=== PATIENT | female | born 1985 | race Caucasian/White ===

== ENCOUNTER 2016-10-06 18:12 | Emergency (ER) | payer MEDICAID ==
[2016-10-06 18:21] VITALS: BP 125/89
[2016-10-06] MEDS ORDERED: Sodium Chloride 0.9% 1,000 ML IV ONE (18:48)
[2016-10-06] MEDS ORDERED: Metoclopramide 10 MG/2 ML SDV IVPUSH ONE (18:48)
[2016-10-06] MEDS ORDERED: Sodium Chloride 0.9% 10 ML Syringe FLUSH PRN (18:48)
[2016-10-06] MEDS ORDERED: diphenhydrAMINE 50 MG/ML SDV IVPUSH ONE (18:48)
--- NOTE | 2016-10-06 18:55 | EDM.PDOC ---
ED HPI GENERAL MEDICAL PROBLEM - General Chief Complaint: Headache Stated Complaint: HEADACHE/VISION CHANGES Time Seen by Provider: 10/06/16 18:35 Source of Information: Reports: Patient History Limitations: Reports: No Limitations - History of Present Illness INITIAL COMMENTS - FREE TEXT/NARRATIVE: 31-year-old female presents for evaluation and treatment of a headache. Patient reports that the headache came on suddenly while she was at work around 1700 this evening. She states that is located behind the left eye. She has tried Motrin but this has not helped. She is currently complaining of headache and vision changes. She reports that her left eye is blurry and describes her vision as turning lenz. She has felt nauseous earlier but this has since resolved. No fevers, neck pain, vomiting or back pain. Patient reports that she used to get headaches frequently as a child. She used to be on mag salts has not been on them in several years and has not had trouble with migraines in several years. She denies any trauma or any known trigger that caused a migraine headache today. Patient reports she has 20/20 vision. No glasses or contracts. 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 Denies: Ear Pain, Sinus Problem GI/Abdominal: Reports: Nausea (earlier now resolved). Denies: Vomiting Neurological: Reports: Headache. Denies: Dizziness, Numbness, Seizure, Syncope , Tingling - Physical Exam Exam: See Below Exam Limited By: No Limitations General Appearance: Alert, WD/WN, No Apparent Distress Eye Exam: Left Eye: Vision Changes (left eye 20/100; right eye 20/20; both 20/20 ), Bilateral Eye: EOMI, Normal Fundi (difficulty to fully examine the retina; cannot exclude optic neuroitis), Normal Inspection, PERRL Ears: Normal External Exam, Normal Canal, Hearing Grossly Normal, Normal TMs Nose: Normal Inspection Throat/Mouth: Normal Inspection, Normal Lips, Normal Teeth, Normal Oropharynx, No Airway Compromise Head Exam: Atraumatic, Normocephalic. No: Sinus Tenderness Neck: Normal Inspection, Supple, Non-Tender, Full Range of Motion. No: Lymphadenopathy (L), Lymphadenopathy (R) Respiratory/Chest: No Respiratory Distress, Lungs Clear, Normal Breath Sounds Cardiovascular: Normal Peripheral Pulses, Regular Rate, Rhythm, No Murmur Neuro Exam (Abbreviated): Alert, Oriented, CN II-XII Intact, Normal Cognition, Normal Gait Psychiatric: Normal Affect, Normal Mood Skin Exam: Warm, Dry, Normal Color Course - Vital Signs Last Recorded V/S: Last Vital Signs Temp 36.7 C 10/06/16 18:20 Pulse 68 10/06/16 18:20 Resp 20 10/06/16 18:20 BP 125/89 10/06/16 18:20 Pulse Ox 99 10/06/16 18:20 - Orders/Labs/Meds Orders: Active Orders 24 hr Category Date Time Status Peripheral IV Care [RC] . DIRECTED Care 10/06/16 18:49 Inactive Labs: Laboratory Tests 10/06/16 10/06/16 10/06/16 Range/Units 19:30 19:30 19:30 WBC 11.27 H (3.98-10.04) K/mm3 RBC 4.76 (3.98-5.22) M/mm3 Hgb 13.4 (11.2-15.7) gm/L Hct 39.2 (34.1-44.9) % MCV 82.4 (79.4-94.8) fl MCH 28.2 (25.6-32.2) pg MCHC 34.2 (32.2-35.5) g/dl RDW Std Deviation 38.8 (36.4-46.3) fL Plt Count 274 (182-369) K/mm3 MPV 10.2 (9.4-12.3) fl Neut % (Auto) 68.3 (34.0-71.1) % Lymph % (Auto) 24.9 (19.3-51.7) % [place] % (Auto) 5.7 (4.7-12.5) % Eos % (Auto) 0.5 L (0.7-5.8) Baso % (Auto) 0.4 (0.1-1.2) % Neut # (Auto) 7.70 H (1.56-6.13) K/mm3 Lymph # (Auto) 2.81 (1.18-3.74) K/mm3 [place] # (Auto) 0.64 H (0.24-0.36) K/mm3 Eos # (Auto) 0.06 (0.04-0.36) K/mm3 Baso # (Auto) 0.04 (0.01-0.08) K/mm3 Sodium 139 (136-145) mEq/L Potassium 3.5 (3.5-5.1) mEq/L Chloride 102 (98-107) mEq/L Carbon Dioxide 29 (21-32) mEq/L Anion Gap 11.5 (5-15) BUN 8 (7-18) mg/dL Creatinine 0.7 (0.55-1.02) mg/dL Est Cr Clr Drug Dosing 111.01 mL/min Estimated GFR (MDRD) > 60 (>60) mL/min BUN/Creatinine Ratio 11.4 L (14-18) Glucose 91 (74-106) mg/dL Calcium 8.9 (8.5-10.1) mg/dL Total Bilirubin 0.3 (0.2-1.0) mg/dL AST 18 (15-37) U/L ALT 30 (14-59) U/L Alkaline Phosphatase 85 (46-116) U/L C-Reactive Protein < 0.2 (<1.0) mg/dL Total Protein 7.5 (6.4-8.2) g/dl Albumin 3.7 (3.4-5.0) g/dl Globulin 3.8 gm/dL Albumin/Globulin Ratio 1.0 (1-2) Meds: Medications Discontinued Medications Generic Name Dose Route Start Last Admin Trade Name Nolan PRN Reason Stop Dose Admin Dexamethasone 4 mg 10/06/16 21:20 Dexamethasone IM 10/06/16 21:21 ONETIME ONE Dexamethasone 4 mg 10/06/16 21:24 10/06/16 21:29 Dexamethasone IM 10/06/16 21:25 4 mg ONETIME ONE Administration Diphenhydramine HCl 50 mg 10/06/16 18:48 10/06/16 19:21 Benadryl IVPUSH 10/06/16 18:49 Not Given ONETIME ONE Diphenhydramine HCl 50 mg 10/06/16 19:45 10/06/16 20:11 Benadryl PO 10/06/16 19:46 50 mg ONETIME ONE Administration Haloperidol Lactate 5 mg 10/06/16 20:50 10/06/16 21:15 Haldol IM 10/06/16 20:51 Not Given ONETIME ONE Sodium Chloride 1,000 mls @ 999 mls/hr 10/06/16 18:48 10/06/16 19:20 Normal Saline IV 10/06/16 19:48 Not Given ONETIME ONE Ketorolac Tromethamine 60 mg 10/06/16 19:45 10/06/16 20:11 Toradol IM 10/06/16 19:46 60 mg ONETIME ONE Administration Metoclopramide HCl 5 mg 10/06/16 18:48 10/06/16 19:21 Reglan IVPUSH 10/06/16 18:49 Not Given ONETIME ONE Sodium Chloride 10 ml 10/06/16 18:48 Saline Flush FLUSH ASDIRECTED PRN Keep Vein Open - Radiology Interpretation Free Text/Narrative:: CT of the head without contrast impression per Dr. Trinidad: 1. No acute intracranial abnormality is identified on noncontrast head CT study. - Re-Assessments/Exams Free Text/Narrative Re-Assessment/Exam: 10/06/16 20:13 unsuccessful in obtaining IV access. Gave toradol IM once head CT was negative for bleed. 10/06/16 20:45 Labs returned WBC Cis 11.27, hgb is 13.4 and plts are 274 CRP is <0.2 sodium is 139, potassium is 3.5 and chloride is 102. creatinine is 0.7. Glucose is 91 Headache now a 7/10. No change in vision. Will order IM haldol. 10/06/16 21:25 Patient does not have a ride home and must drive her self home. Decided to cancel haldol. Will give IM dexamethasone 4mg. 10/06/16 22:08 Patient reports headache is now a 3 out of 10. Feels comfortable going home. Will discharge home. I discussed with the patient this is most likely an atypical migraine. However, I do have concerns that this is optic neuroitis. I will start her on a prednison viral in case this is the cause. I would like her to follow-up with optometry next week and family med. I was unsuccessful in identifying optic neuroitis on fundoscopic exam. Departure - Departure Time of Disposition: 22:01 Disposition: Home, Self-Care 01 Condition: Good Clinical Impression: Headache, Blurry vision, left eye - Discharge Information Prescriptions: Prednisone [IJD: predniSONE] See Taper PO WITHBREAKFAST #11 tab Instructions: General Headache Without Cause Referrals: PCP,None [Primary Care Provider] - Forms: ED Department Discharge Additional Instructions: take prednisone as prescribed. 2 tabs (40mg) PO days 1-3, 1 tab (20mg) PO days 4 -6, 1/2 tab (10mg) PO days 7-10 Follow-up with an eye doctor next week. Please let them know you developed a headache and blurry vision. You were seen in the ER and we had concerns for optic neuroitis. Follow-up with your PCP next week for a recheck on your symptoms and further testing as needed. Go home and rest in a dark, quiet room. Take OTC tylenol or motrin as needed for additional relief. Please return to the ER should your symptoms change or worsen. - My Orders Last 24 Hours: My Active Orders 10/06/16 18:49 Peripheral IV Care [RC] . DIRECTED - Assessment/Plan Last 24 Hours: My Active Orders 10/06/16 18:49 Peripheral IV Care [RC] . DIRECTED
--- NOTE | 2016-10-06 19:32 | CT ---
Head CT Technique: Multiple axial sections of the brain were obtained. Intravenous contrast was not utilized. Comparison: No previous intracranial imaging is available. Findings: Ventricles along with basal cisterns and sulci over the convexities are within normal limits for the patient's age. No abnormal parenchymal densities are seen. No evidence of intracranial hemorrhage. No midline shift or mass effect is seen. Bone window settings were reviewed which shows no discrete calvarial abnormality. Visualized sinuses are clear. Impression: 1. No acute intracranial abnormality is identified on noncontrast head CT study. Diagnostic code #1
[2016-10-06] MEDS ORDERED: diphenhydrAMINE 50 MG Cap PO ONE (19:45)
[2016-10-06] MEDS ORDERED: Ketorolac 60 MG/2 ML SDV IM ONE (19:45)
[2016-10-06] MEDS ORDERED: Haloperidol Lactate 5 MG/ML SDV IM ONE (20:50)
[2016-10-06] MEDS ORDERED: Dexamethasone 4 MG/ML 5 ML MDV IM ONE (21:20)
[2016-10-06] MEDS ORDERED: Dexamethasone 10 MG/ML SDV IM ONE (21:24)
== END 2016-10-06 22:15 | disposition home or self-care (01) ==
LOC: JD.ED 18:12
DX: R51 Headache (principal); H53.8 Other visual disturbances; Z90.49 Acquired absence of other specified parts of digestive tract
CPT/HCPCS: 36415; 70450; 80053; 85025; 86140; 99284; A9270; J1100; J1885; 96372; 99283

== ENCOUNTER 2017-08-28 19:18 | Emergency (ER) | payer MEDICAID ==
[2017-08-28 19:28] VITALS: BP 127/79
[2017-08-28] MEDS ORDERED: Lactated Ringers 1,000 ML IV ONE (20:06)
[2017-08-28] MEDS ORDERED: Ondansetron 4 MG/2 ML SDV IVPUSH ONE (20:07)
[2017-08-28] MEDS ORDERED: HYDROmorphone 0.5 MG/0.5 ML SYRINGE IVPUSH ONE ×2 (20:07→21:36)
[2017-08-28] MEDS: Sodium Chloride 0.9% 10 ML Syringe FLUSH PRN ×2 (20:18→21:50)
[2017-08-28] MEDS ORDERED: Diatrizoate Meglumine/Diatrizoate Sodium 37% 120 ML Bottle PO ONE (21:27)
[2017-08-28] MEDS ORDERED: Iopamidol 612 MG/ML 150 ML Bottle IVPUSH ONE (21:27)
--- NOTE | 2017-08-28 21:31 | EDM.PDOC ---
ED HPI GENERAL MEDICAL PROBLEM - General Chief Complaint: Abdominal Pain Stated Complaint: STOMACH PAIN Time Seen by Provider: 08/28/17 20:00 Source of Information: Reports: Patient History Limitations: Reports: No Limitations - History of Present Illness INITIAL COMMENTS - FREE TEXT/NARRATIVE: 32-year-old female presents for evaluation and treatment of lower abdominal pain. Patient reports that the abdominal pain started suddenly tonight while she was at work. She reports it is starts in the suprapubic region and radiates to the bilateral lower abdomen. She describes the pain as a sharp stabbing sensation. Rates the pain as a 7 or 8 out of 10. She reports that she's not felt well today. She reports she is not have an appetite. She's not had anything to eat since breakfast today. She states that movement seems to worsen the abdominal pain. She denies any fevers, chills, nausea, vomiting, diarrhea or constipation. No urinary symptoms including no dysuria, hematuria change in urine odor. Patient reports her last menstrual period was about 4 weeks ago. She has had her tubes tied in the past. No other abdominal surgeries. 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 Denies: Bloody Stool, Constipation, Diarrhea, Hematochezia, Melena, Nausea, Vomiting : Denies: Dysuria, Flank Pain, Hematuria ED EXAM, GI/ABD - Physical Exam Exam: See Below Exam Limited By: No Limitations General Appearance: Alert, WD/WN, No Apparent Distress Respiratory/Chest: No Respiratory Distress, Lungs Clear, Normal Breath Sounds Cardiovascular: Normal Peripheral Pulses, Regular Rate, Rhythm, No Murmur GI/Abdominal Exam: Normal Bowel Sounds, Soft, Rebound, Tender (suprapubic and bilateral lower abdomen right > left), Other (pain at mcburnies point; minor discomfort with psosas and obturator signs, no pain with heel percussion). No: Rigid Neurological: Alert, Oriented, Normal Cognition Psychiatric: Normal Affect, Normal Mood Skin Exam: Warm, Dry, Normal Color Course - Vital Signs Last Recorded V/S: Last Vital Signs Temp 36.8 C 08/28/17 19:22 Pulse 88 08/28/17 19:22 Resp 18 08/28/17 19:22 BP 127/79 08/28/17 19:22 Pulse Ox 98 08/28/17 19:22 - Orders/Labs/Meds Orders: Active Orders 24 hr Category Date Time Status Peripheral IV Care [RC] . DIRECTED Care 08/28/17 20:07 Active Abdomen Pelvis w Cont [CT] Stat Exams 08/28/17 20:07 Taken UA W/MICROSCOPIC [URIN] Stat Lab 08/28/17 20:27 Ordered Sodium Chloride 0.9% [Saline Flush] Med 08/28/17 20:07 Active 10 ml FLUSH ASDIRECTED PRN Peripheral IV Insertion Adult [OM.PC] Routine Oth 08/28/17 20:06 Ordered Medication Orders Sodium Chloride (Saline Flush) 10 ml FLUSH ASDIRECTED PRN PRN Reason: Keep Vein Open Last Admin: 08/28/17 21:50 Dose: 10 ml Admin: 08/28/17 20:18 Dose: 10 ml Labs: Laboratory Tests 08/28/17 08/28/17 08/28/17 Range/Units 20:25 20:25 20:25 WBC 10.76 H (3.98-10.04) K/mm3 RBC 4.82 (3.98-5.22) M/mm3 Hgb 13.4 (11.2-15.7) gm/L Hct 39.9 (34.1-44.9) % MCV 82.8 (79.4-94.8) fl MCH 27.8 (25.6-32.2) pg MCHC 33.6 (32.2-35.5) g/dl RDW Std Deviation 39.0 (36.4-46.3) fL Plt Count 218 (182-369) K/mm3 MPV 10.3 (9.4-12.3) fl Neutrophils % (Manual) 70 H (40-60) % Band Neutrophils % 0 (0-10) % Lymphocytes % (Manual) 29 (20-40) % Atypical Lymphs % 0 % Monocytes % (Manual) 1 L (2-10) % Eosinophils % (Manual) 0 L (0.7-5.8) % Basophils % (Manual) 0 L (0.1-1.2) Platelet Estimate Adequate Plt Morphology Comment Normal RBC Morph Comment Normal Sodium 139 (136-145) mEq/L Potassium 4.0 (3.5-5.1) mEq/L Chloride 104 (98-107) mEq/L Carbon Dioxide 26 (21-32) mEq/L Anion Gap 13.0 (5-15) BUN 11 (7-18) mg/dL Creatinine 0.7 (0.55-1.02) mg/dL Est Cr Clr Drug Dosing 110.01 mL/min Estimated GFR (MDRD) > 60 (>60) mL/min BUN/Creatinine Ratio 15.7 (14-18) Glucose 93 (74-106) mg/dL Calcium 9.1 (8.5-10.1) mg/dL Total Bilirubin 0.3 (0.2-1.0) mg/dL AST 14 L (15-37) U/L ALT 20 (14-59) U/L Alkaline Phosphatase 74 (46-116) U/L C-Reactive Protein < 0.2 (<1.0) mg/dL Total Protein 7.0 (6.4-8.2) g/dl Albumin 3.5 (3.4-5.0) g/dl Globulin 3.5 gm/dL Albumin/Globulin Ratio 1.0 (1-2) HCG, Qual Negative (NEGATIVE) Urine Color (Yellow) Urine Appearance (Clear) Urine pH (5.0-8.0) Ur Specific [place] (1.005-1.030) Urine Protein (Negative) Urine Glucose (UA) (Negative) Urine Ketones (Negative) Urine Occult Blood (Negative) Urine Nitrite (Negative) Urine Bilirubin (Negative) Urine Urobilinogen (0.2-1.0) Ur Leukocyte Esterase (Negative) Urine RBC (0-5) /hpf Urine WBC (0-5) /hpf Ur Epithelial Cells (0-5) /hpf Urine Bacteria (FEW) /hpf Urine Mucus (FEW) /hpf 08/28/17 Range/Units 20:27 WBC (3.98-10.04) K/mm3 RBC (3.98-5.22) M/mm3 Hgb (11.2-15.7) gm/L Hct (34.1-44.9) % MCV (79.4-94.8) fl MCH (25.6-32.2) pg MCHC (32.2-35.5) g/dl RDW Std Deviation (36.4-46.3) fL Plt Count (182-369) K/mm3 MPV (9.4-12.3) fl Neutrophils % (Manual) (40-60) % Band Neutrophils % (0-10) % Lymphocytes % (Manual) (20-40) % Atypical Lymphs % % Monocytes % (Manual) (2-10) % Eosinophils % (Manual) (0.7-5.8) % Basophils % (Manual) (0.1-1.2) Platelet Estimate Plt Morphology Comment RBC Morph Comment Sodium (136-145) mEq/L Potassium (3.5-5.1) mEq/L Chloride (98-107) mEq/L Carbon Dioxide (21-32) mEq/L Anion Gap (5-15) BUN (7-18) mg/dL Creatinine (0.55-1.02) mg/dL Est Cr Clr Drug Dosing mL/min Estimated GFR (MDRD) (>60) mL/min BUN/Creatinine Ratio (14-18) Glucose (74-106) mg/dL Calcium (8.5-10.1) mg/dL Total Bilirubin (0.2-1.0) mg/dL AST (15-37) U/L ALT (14-59) U/L Alkaline Phosphatase (46-116) U/L C-Reactive Protein (<1.0) mg/dL Total Protein (6.4-8.2) g/dl Albumin (3.4-5.0) g/dl Globulin gm/dL Albumin/Globulin Ratio (1-2) HCG, Qual (NEGATIVE) Urine Color Yellow (Yellow) Urine Appearance Clear (Clear) Urine pH 7.0 (5.0-8.0) Ur Specific [place] 1.025 (1.005-1.030) Urine Protein Negative (Negative) Urine Glucose (UA) Negative (Negative) Urine Ketones Negative (Negative) Urine Occult Blood Negative (Negative) Urine Nitrite Negative (Negative) Urine Bilirubin Negative (Negative) Urine Urobilinogen 0.2 (0.2-1.0) Ur Leukocyte Esterase 1+ H (Negative) Urine RBC Not seen (0-5) /hpf Urine WBC 5-10 H (0-5) /hpf Ur Epithelial Cells 20-30 H (0-5) /hpf Urine Bacteria Not seen (FEW) /hpf Urine Mucus Not seen (FEW) /hpf Meds: Medications Generic Name Dose Route Start Last Admin Trade Name Freeduarda PRN Reason Stop Dose Admin Sodium Chloride 10 ml 08/28/17 20:07 08/28/17 21:50 Saline Flush FLUSH 10 ml ASDIRECTED PRN Administration Keep Vein Open Discontinued Medications Generic Name Dose Route Start Last Admin Trade Name Freq PRN Reason Stop Dose Admin Diatrizoate Meglum/Diatrizoate Sod 90 ml 08/28/17 21:27 08/28/17 21:50 Gastrografin 37% PO 08/28/17 21:28 90 ml ONETIME ONE Administration Hydromorphone HCl 0.5 mg 08/28/17 20:07 08/28/17 20:19 Dilaudid IVPUSH 08/28/17 20:08 0.5 mg ONETIME ONE Administration Hydromorphone HCl 0.5 mg 08/28/17 21:36 08/28/17 21:55 Dilaudid IVPUSH 08/28/17 21:37 0.5 mg ONETIME ONE Administration Lactated Ringer's 1,000 mls @ 999 mls/hr 08/28/17 20:06 08/28/17 20:19 Ringers, Lactated IV 08/28/17 21:06 999 mls/hr .BOLUS ONE Administration Iopamidol 125 ml 08/28/17 21:27 08/28/17 21:50 Isovue-300 (61%) IVPUSH 08/28/17 21:28 125 ml ONETIME ONE Administration Ondansetron HCl 4 mg 08/28/17 20:07 08/28/17 20:18 Zofran IVPUSH 08/28/17 20:08 4 mg ONETIME ONE Administration - Radiology Interpretation Free Text/Narrative:: CT of the abdomen and pelvis with IV and oral contrast impression per vrad: Small amount of free fluid in the cul-de-sac. Corpus luteum cyst in the left ovary. The bowel wall is thickened in the cecum. This could be secondary to colitis. This could be infectious or inflammatory. Normal appendix. Moderate distention of the urinary bladder. - Re-Assessments/Exams Free Text/Narrative Re-Assessment/Exam: 08/28/17 22:04 Pain returning, additional 0.5 mg IV Dilaudid ordered. Awaiting CT report at this time. 08/28/17 22:[address] Johnson. Recommended symptomatic care with pain meds, clear fluids and probiotic. Close follow-up. I reviewed the labs and CT report with the patient. We will discharge the patient home at this time. Discharge instructions as documented. Departure - Departure Time of Disposition: 22:54 Disposition: Home, Self-Care 01 Condition: Fair Clinical Impression: Colitis, Corpus luteum cyst of left ovary - Discharge Information Prescriptions: Acetaminophen/oxyCODONE [Percocet 325-5 MG] 1 tab PO Q4HR PRN #15 tab PRN Reason: Pain Referrals: Connie Beltrán PA-C [Primary Care Provider] - Forms: ED Department Discharge Additional Instructions: [id number] Tylenol or Motrin as needed for pain relief. For pain not relieved by Tylenol or Motrin may take Percocet 1-2 tabs every 4-6 hours as needed for severe pain. Percocet is habit-forming, take as few of thes as needed to control your pain. Do not drive or operate machinery within 12 hours of taking Percocet. do not take more than 4 g of Tylenol from all sources in 1 day. Do not take more than 3200 mg of ibuprofen frp, all sources in 1 day. Make sure you start a stool softener such as miralax if you take the narcotics. drink clear fluids and a bland diet. He may start with a bland diet tomorrow evening. [place] diet recommendations inc bread, rice, applesauce, crackers, yogurt, bananas, Soup broth, etc.may advance advance to more diet as tolerated. Recommend purchasing a probiotic and taking this daily. These are available over -the-counter. you were given medication in the ER that can affect your ability to drive and operate machinery. Do not drive or operate machinery within 12 hours of taking prescription narcotic pain medications. Follow-up with her primary care provider later this week, or Sunday for recheck of your symptoms. If you do not improve you may require additional workup to determine the cause of the colitis. Please return to the ER for symptoms change or worsen. - My Orders Last 24 Hours: My Active Orders 08/28/17 20:06 Peripheral IV Insertion Adult [OM.PC] Routine 08/28/17 20:07 Peripheral IV Care [RC] . DIRECTED Abdomen Pelvis w Cont [CT] Stat Sodium Chloride 0.9% [Saline Flush] 10 ml FLUSH ASDIRECTED PRN 08/28/17 20:27 UA W/MICROSCOPIC [URIN] Stat - Assessment/Plan Last 24 Hours: My Active Orders 08/28/17 20:06 Peripheral IV Insertion Adult [OM.PC] Routine 08/28/17 20:07 Peripheral IV Care [RC] . DIRECTED Abdomen Pelvis w Cont [CT] Stat Sodium Chloride 0.9% [Saline Flush] 10 ml FLUSH ASDIRECTED PRN 08/28/17 20:27 UA W/MICROSCOPIC [URIN] Stat
--- NOTE | 2017-08-29 08:26 | CT ---
CT abdomen and pelvis Technique: Multiple axial sections were obtained from above the dome of the diaphragm inferiorly through the pubic symphysis. Intravenous and oral contrast was given. Delayed images were also obtained through the bladder. Visualized lung bases show nothing acute. Liver shows no focal parenchymal abnormality. Spleen appears within normal limits. Adrenal glands show no nodule. Gallbladder is collapsed containing no calcified gallstones. Kidneys show symmetric contrast enhancement without hydronephrosis or mass. Pancreas appears within normal limits. Aorta shows no aneurysmal dilatation. Appendix is seen which is normal in size. No pelvic mass or adenopathy is seen. Questionable thickening of the wall within the cecum is seen. Mild increased stool is noted within the colon. No free fluid or inflammatory change is seen. Delayed images show contrast within the distal ureters and within the bladder. No bowel dilatation is seen. Bone window settings were reviewed which appear within normal limits for the patient's age. Incidental note of small fat-containing umbilical hernia. Impression: 1. Equivocal wall thickening within the cecum. This may be artifact but difficult to exclude minimal colitis. Please correlate with the patient's symptoms. 2. Mild increased stool within the colon. 3. Other portions of the CT exam of the abdomen and pelvis appears within normal limits. Nothing acute is seen. Diagnostic code #3 Agree with preliminary report issued by [facility] ([facility] preliminary report dictated on 87, 11:35 PM Central Time)
== END 2017-08-28 23:10 | disposition home or self-care (01) ==
LOC: JD.ED 19:18
DX: K52.9 Noninfective gastroenteritis and colitis, unspecified (principal); N83.12 Corpus luteum cyst of left ovary; Z88.6 Allergy status to analgesic agent; Z88.0 Allergy status to penicillin; Z88.1 Allergy status to other antibiotic agents; Z79.899 Other long term (current) drug therapy
CPT/HCPCS: 36415; 74177; 80053; 81001; 84703; 85007; 85027; 86140; 96361; 96374; 96375; 96376; 99284; J1170; J2405; J7050; J7120; Q9963; Q9967

== ENCOUNTER 2017-09-13 17:59 | Emergency (ER) | payer MEDICAID ==
[2017-09-13 18:20] VITALS: BP 121/79
--- NOTE | 2017-09-13 18:56 | EDM.PDOC ---
ED HPI GENERAL MEDICAL PROBLEM - General Chief Complaint: Abdominal Pain Stated Complaint: ABDOMINAL PAIN Time Seen by Provider: 09/13/17 18:56 Source of Information: Reports: Patient History Limitations: Reports: No Limitations - History of Present Illness INITIAL COMMENTS - FREE TEXT/NARRATIVE: Patient is a 32-year-old female presents ED complaining of sharp lower abdominal pain. Patient states it radiates bilaterally into her low back. States when she went to the bathroom today to urinate she had some blood from her rectum. She states their was only a small amount of blood with few blood clots present. She has a history of hemorrhoids but states there is no pain to her rectum. States her stool caliber has changed as well. There is no burning sensation with urination. No abnormal vaginal discharge. She is slightly nauseated with no documented fever or emesis. She denies being since she has had a tubal ligation. She was evaluated 08/28/2017 for the similar complaints. She was diagnosed with colitis and was instructed to take pain medications and a probiotic. She has not followed up with primary care provider as instructed. She denies any fevers, chills, and vomiting, diarrhea, constipation, dysuria, hematuria, and/or any additional complaints. 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 ED EXAM, GI/ABD - Physical Exam Exam: See Below Exam Limited By: No Limitations General Appearance: Alert, WD/WN, No Apparent Distress Ears: Hearing Grossly Normal Nose: Normal Inspection Throat/Mouth: Normal Voice, No Airway Compromise Neck: Normal Inspection, Supple Respiratory/Chest: No Respiratory Distress, Lungs Clear, Normal Breath Sounds, No Accessory Muscle Use Cardiovascular: Normal Peripheral Pulses, Regular Rate, Rhythm, No Murmur GI/Abdominal Exam: Normal Bowel Sounds, Soft, No Organomegaly, No Distention, Tender (mild tenderness to the suprapubic region), Other (negative mcburneys point. ) Back Exam: Normal Inspection. No: CVA Tenderness (L), CVA Tenderness (R) Extremities: Normal Inspection Neurological: Alert, Oriented, CN II-XII Intact, Normal Cognition, No Motor/ Sensory Deficits Psychiatric: Normal Affect, Normal Mood Skin Exam: Warm, Dry, Intact, Normal Color Course - Vital Signs Last Recorded V/S: Last Vital Signs Temp 97.4 F 09/13/17 18:17 Pulse 78 09/13/17 18:17 Resp 16 09/13/17 18:17 BP 121/79 09/13/17 18:17 Pulse Ox 97 09/13/17 18:17 - Orders/Labs/Meds Orders: Active Orders 24 hr Category Date Time Status Abdomen 2V AP Flat Upright [CR] Stat Exams 09/13/17 19:05 Taken CULTURE STOOL + SHIGATOX [RM] Stat Lab 09/13/17 19:14 Ordered WBC, STOOL [OP] Stat Lab 09/13/17 19:14 Ordered Labs: Laboratory Tests 09/13/17 09/13/17 09/13/17 Range/Units 19:58 19:58 21:00 WBC 9.58 (3.98-10.04) K/mm3 RBC 4.62 (3.98-5.22) M/mm3 Hgb 12.9 (11.2-15.7) gm/L Hct 38.5 (34.1-44.9) % MCV 83.3 (79.4-94.8) fl MCH 27.9 (25.6-32.2) pg MCHC 33.5 (32.2-35.5) g/dl RDW Std Deviation 39.1 (36.4-46.3) fL Plt Count 242 (182-369) K/mm3 MPV 10.6 (9.4-12.3) fl Neutrophils % (Manual) 70 H (40-60) % Band Neutrophils % 0 (0-10) % Lymphocytes % (Manual) 27 (20-40) % Atypical Lymphs % 0 % Monocytes % (Manual) 3 (2-10) % Eosinophils % (Manual) 0 L (0.7-5.8) % Basophils % (Manual) 0 L (0.1-1.2) Platelet Estimate Adequate RBC Morph Comment Normal Sodium 143 (136-145) mEq/L Potassium 4.0 (3.5-5.1) mEq/L Chloride 107 (98-107) mEq/L Carbon Dioxide 26 (21-32) mEq/L Anion Gap 14.0 (5-15) BUN 9 (7-18) mg/dL Creatinine 0.6 (0.55-1.02) mg/dL Est Cr Clr Drug Dosing 128.35 mL/min Estimated GFR (MDRD) > 60 (>60) mL/min BUN/Creatinine Ratio 15.0 (14-18) Glucose 95 (74-106) mg/dL Calcium 8.9 (8.5-10.1) mg/dL Total Bilirubin 0.3 (0.2-1.0) mg/dL AST 16 (15-37) U/L ALT 27 (14-59) U/L Alkaline Phosphatase 74 (46-116) U/L Total Protein 6.9 (6.4-8.2) g/dl Albumin 3.5 (3.4-5.0) g/dl Globulin 3.4 gm/dL Albumin/Globulin Ratio 1.0 (1-2) Lipase 110 (73-393) U/L Urine Color (Yellow) Urine Appearance (Clear) Urine pH (5.0-8.0) Ur Specific [place] (1.005-1.030) Urine Protein (Negative) Urine Glucose (UA) (Negative) Urine Ketones (Negative) Urine Occult Blood (Negative) Urine Nitrite (Negative) Urine Bilirubin (Negative) Urine Urobilinogen (0.2-1.0) Ur Leukocyte Esterase (Negative) Urine RBC (0-5) /hpf Urine WBC (0-5) /hpf Ur Epithelial Cells (0-5) /hpf Urine Bacteria (FEW) /hpf Urine Mucus (FEW) /hpf Urine HCG, Qual Negative (NEGATIVE) 09/13/17 Range/Units 21:00 WBC (3.98-10.04) K/mm3 RBC (3.98-5.22) M/mm3 Hgb (11.2-15.7) gm/L Hct (34.1-44.9) % MCV (79.4-94.8) fl MCH (25.6-32.2) pg MCHC (32.2-35.5) g/dl RDW Std Deviation (36.4-46.3) fL Plt Count (182-369) K/mm3 MPV (9.4-12.3) fl Neutrophils % (Manual) (40-60) % Band Neutrophils % (0-10) % Lymphocytes % (Manual) (20-40) % Atypical Lymphs % % Monocytes % (Manual) (2-10) % Eosinophils % (Manual) (0.7-5.8) % Basophils % (Manual) (0.1-1.2) Platelet Estimate RBC Morph Comment Sodium (136-145) mEq/L Potassium (3.5-5.1) mEq/L Chloride (98-107) mEq/L Carbon Dioxide (21-32) mEq/L Anion Gap (5-15) BUN (7-18) mg/dL Creatinine (0.55-1.02) mg/dL Est Cr Clr Drug Dosing mL/min Estimated GFR (MDRD) (>60) mL/min BUN/Creatinine Ratio (14-18) Glucose (74-106) mg/dL Calcium (8.5-10.1) mg/dL Total Bilirubin (0.2-1.0) mg/dL AST (15-37) U/L ALT (14-59) U/L Alkaline Phosphatase (46-116) U/L Total Protein (6.4-8.2) g/dl Albumin (3.4-5.0) g/dl Globulin gm/dL Albumin/Globulin Ratio (1-2) Lipase (73-393) U/L Urine Color Yellow (Yellow) Urine Appearance Clear (Clear) Urine pH 7.0 (5.0-8.0) Ur Specific [place] > or = 1.030 (1.005-1.030) Urine Protein Negative (Negative) Urine Glucose (UA) Negative (Negative) Urine Ketones Negative (Negative) Urine Occult Blood Negative (Negative) Urine Nitrite Negative (Negative) Urine Bilirubin Negative (Negative) Urine Urobilinogen 0.2 (0.2-1.0) Ur Leukocyte Esterase Negative (Negative) Urine RBC 0-5 (0-5) /hpf Urine WBC 0-5 (0-5) /hpf Ur Epithelial Cells 0-5 (0-5) /hpf Urine Bacteria Few (FEW) /hpf Urine Mucus Moderate H (FEW) /hpf Urine HCG, Qual (NEGATIVE) Meds: Medications Discontinued Medications Generic Name Dose Route Start Last Admin Trade Name Luisq PRN Reason Stop Dose Admin Hydromorphone HCl 0.5 mg 09/13/17 19:04 09/13/17 19:42 Dilaudid IVPUSH 09/13/17 19:05 0.5 mg ONETIME ONE Administration Sodium Chloride 1,000 mls @ 150 mls/hr 09/13/17 19:15 09/13/17 19:42 Normal Saline IV 150 mls/hr ASDIRECTED GRANT Administration Ondansetron HCl 4 mg 09/13/17 19:04 09/13/17 19:42 Zofran IVPUSH 09/13/17 19:05 4 mg ONETIME ONE Administration - Re-Assessments/Exams Free Text/Narrative Re-Assessment/Exam: IV established with NS, Zofran 4 mg IVP, and Dilaudid 0.5 mg IVP. Initial labs and studies will include: CBC, chem 14, lipase, UA, stool WBCs, stool cultures, hCG, and coag studies and abdomen 2 view flat and upright. 1919 Patient was evaluated 08/28/2017. Labs obtained reveal a slight increase my blood cell count with no neutrophilia or left shift. Chemistry panel is essentially normal. CRP less than 0.2. HCG negative. UA positive for leukocyte Estrace, negative nitrates, urine wbc's 5-10, urine epithelial cells 20-30. CT of the abdomen and pelvis with IV and oral contrast impression: Small amount of free fluid in the cul-de-sac. Corpus luteum cyst in the left ovary. The bowel wall is thickened and the cecum. This could be secondary to colitis. This could be infectious or inflammatory. Normal appendix. Moderate distention of the urinary bladder. Patient was discharged home with pain meds, clear fluids, and probiotic. With instructions for close follow-up. Two-view of the abdomen: Nonspecific air in stool patterns with no concerning findings. Final interpretations pending. Labs reviewed: CBC and chemistry panel essentially normal. UA negative for infection. Pain and nausea been controlled with the above therapies. At this point do not believe reimaging with CT is appropriate. Patient does not appear to be in acute distress. Labs are essentially normal. She has had no BM and or complained of any blood with admission. She defers examination for hemmorhoids. Patient agrees to not obtain CT of the abdomen. Will return if symptoms worsen. She has an appt with PCP scheduled for this coming Sunday. Outpatient orders for stool studies provided. Discharge instructions as documented. Departure - Departure Time of Disposition: 21:35 Disposition: Home, Self-Care 01 Condition: Good Clinical Impression: Clotted blood in stool Abdominal pain Qualifiers: Abdominal location: lower abdomen, unspecified Qualified Code(s): R10.30 - Lower abdominal pain, unspecified - Discharge Information Instructions: Rectal Bleeding, Lower Gastrointestinal Bleeding Referrals: Connie Beltrán PA-C [Primary Care Provider] - Forms: ED Department Discharge, ED Return to Work/School Form Additional Instructions: Please provide a stool sample for testing when able. Bring the stool sample to the lab as instructed by nursing staff. Stick with a clear liquid diet for the next 48 hrs advancing to a bland diet thereafter. Once stool studies have been completed you will be notified for treatment. Keep appt with PCP as scheduled for this coming Sunday. Return to the E.D. for any new or worsening symptoms. No driving this evening since receiving a sedative medication while in the E.D. Continue taking OTC probiotic. Utilize ibuprofen and tylenol in alternating fashion for pain. - My Orders Last 24 Hours: My Active Orders 09/13/17 19:05 Abdomen 2V AP Flat Upright [CR] Stat 09/13/17 19:14 CULTURE STOOL + SHIGATOX [RM] Stat WBC, STOOL [OP] Stat - Assessment/Plan Last 24 Hours: My Active Orders 09/13/17 19:05 Abdomen 2V AP Flat Upright [CR] Stat 09/13/17 19:14 CULTURE STOOL + SHIGATOX [RM] Stat WBC, STOOL [OP] Stat
[2017-09-13] MEDS ORDERED: HYDROmorphone 0.5 MG/0.5 ML SYRINGE IVPUSH ONE (19:04)
[2017-09-13] MEDS ORDERED: Ondansetron 4 MG/2 ML SDV IVPUSH ONE (19:04)
[2017-09-13] MEDS ORDERED: Sodium Chloride 0.9% 1,000 ML IV SCH (19:15)
--- NOTE | 2017-09-14 07:15 | CR ---
Abdomen: Supine and upright views of the abdomen were obtained. Comparison: No prior abdominal x-ray, previous CT abdomen and pelvis exam of 08/28/17. Bowel gas pattern appears normal. No free air is identified. No soft tissue abnormality or abnormal calcifications are seen. Impression: 1. Unremarkable two-view abdominal x-ray. Diagnostic code #1
== END 2017-09-13 21:50 | disposition home or self-care (01) ==
LOC: JD.ED 17:59
DX: K92.1 Melena (principal); R10.30 Lower abdominal pain, unspecified; Z88.6 Allergy status to analgesic agent; Z88.0 Allergy status to penicillin; Z88.1 Allergy status to other antibiotic agents
CPT/HCPCS: 36415; 74019; 80053; 81001; 81025; 83690; 85007; 85027; 96361; 96374; 96375; 99284; J1170; J2405; J7040

== ENCOUNTER 2017-11-25 20:42 | Emergency (ER) | payer MEDICAID ==
[2017-11-25] MEDS ORDERED: Ondansetron 4 MG/2 ML SDV IVPUSH ONE (21:35)
[2017-11-25] MEDS ORDERED: Sodium Chloride 0.9% 10 ML Syringe FLUSH PRN (21:36)
[2017-11-25] MEDS ORDERED: HYDROmorphone 0.5 MG/0.5 ML SYRINGE IVPUSH ONE (21:36)
--- NOTE | 2017-11-25 21:43 | EDM.PDOC ---
ED HPI GENERAL MEDICAL PROBLEM - General Chief Complaint: Abdominal Pain Stated Complaint: abdominal pain Time Seen by Provider: 11/25/17 21:53 Source of Information: Reports: Patient History Limitations: Reports: No Limitations - History of Present Illness INITIAL COMMENTS - FREE TEXT/NARRATIVE: 32-year-old female presents for evaluation and treatment of right upper quadrant and epigastric pain. Patient reports the pain started about 2-3 hours prior to arrival in the ER. Currently rates the pain as a 7 out of 10. States that it radiates into her back, shoulder and underneath her right shoulder blade. She reports associated symptoms of feeling dizzy, hot, nauseated and states she vomited 3 times. She has not appreciated any fevers. She states that she has tried reclining and using heating pad but has not had any relief. Patient reports when she was 24 she was told she had issues with her gallbladder. She was diagnosed with what sounds be biliary colic. She's not had any symptoms since. Patient has been seen in the ER several times this summer for abdominal pain. In July she was diagnosed with colitis. It sounds as if this is improving. She had a colonoscopy recently with a provider in [place]. States that the biopsies were done. she is unsure of the results but was told everything on the colonoscopy fine. 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 Denies: Fever GI/Abdominal: Reports: Abdominal Pain, Nausea, Vomiting Musculoskeletal: Reports: Shoulder Pain (left), Back Pain (mid left back) Neurological: Reports: Dizziness ED EXAM, GI/ABD - Physical Exam Exam: See Below Exam Limited By: No Limitations General Appearance: Alert, WD/WN, No Apparent Distress Throat/Mouth: Normal Inspection, Normal Voice, No Airway Compromise Respiratory/Chest: No Respiratory Distress, Lungs Clear, Normal Breath Sounds Cardiovascular: Normal Peripheral Pulses, Regular Rate, Rhythm, No Murmur GI/Abdominal Exam: Normal Bowel Sounds, Soft, Non-Tender, Tender (minor epigastric and RUQ), Other (negative murphys sign) Neurological: Alert, Oriented, Normal Cognition Psychiatric: Normal Affect, Normal Mood Skin Exam: Warm, Dry, Normal Color Course - Vital Signs Last Recorded V/S: Last Vital Signs Temp 97.9 F 11/25/17 20:56 Pulse 71 11/26/17 00:14 Resp 16 11/26/17 00:14 BP 116/71 11/26/17 00:14 Pulse Ox 97 11/26/17 00:14 - Orders/Labs/Meds Labs: Laboratory Tests 11/25/17 11/25/17 Range/Units 21:37 21:37 WBC 11.53 H (3.98-10.04) K/mm3 RBC 5.07 (3.98-5.22) M/mm3 Hgb 14.4 (11.2-15.7) gm/L Hct 41.4 (34.1-44.9) % MCV 81.7 (79.4-94.8) fl MCH 28.4 (25.6-32.2) pg MCHC 34.8 (32.2-35.5) g/dl RDW Std Deviation 38.1 (36.4-46.3) fL Plt Count 242 (182-369) K/mm3 MPV 10.8 (9.4-12.3) fl Neutrophils % (Manual) 57 (40-60) % Band Neutrophils % 0 (0-10) % Lymphocytes % (Manual) 37 (20-40) % Atypical Lymphs % 0 % Monocytes % (Manual) 6 (2-10) % Eosinophils % (Manual) 0 L (0.7-5.8) % Basophils % (Manual) 0 L (0.1-1.2) Platelet Estimate Adequate Plt Morphology Comment Normal RBC Morph Comment Normal Sodium 138 (136-145) mEq/L Potassium 3.7 (3.5-5.1) mEq/L Chloride 103 (98-107) mEq/L Carbon Dioxide 25 (21-32) mEq/L Anion Gap 13.7 (5-15) BUN 10 (7-18) mg/dL Creatinine 0.7 (0.55-1.02) mg/dL Est Cr Clr Drug Dosing 110.01 mL/min Estimated GFR (MDRD) > 60 (>60) mL/min BUN/Creatinine Ratio 14.3 (14-18) Glucose 94 (74-106) mg/dL Calcium 8.7 (8.5-10.1) mg/dL Total Bilirubin 0.3 (0.2-1.0) mg/dL GGT 19 (5-55) U/L AST 16 (15-37) U/L ALT 27 (14-59) U/L Alkaline Phosphatase 75 (46-116) U/L C-Reactive Protein 0.4 (<1.0) mg/dL Total Protein 7.2 (6.4-8.2) g/dl Albumin 3.7 (3.4-5.0) g/dl Globulin 3.5 gm/dL Albumin/Globulin Ratio 1.1 (1-2) Lipase 110 (73-393) U/L Meds: Medications Discontinued Medications Generic Name Dose Route Start Last Admin Trade Name Freq PRN Reason Stop Dose Admin Hydromorphone HCl 0.5 mg 11/25/17 21:36 11/25/17 21:44 Dilaudid IVPUSH 11/25/17 21:37 0.5 mg ONETIME ONE Administration Ketorolac Tromethamine 15 mg 11/25/17 23:16 11/25/17 23:21 Toradol IVPUSH 11/25/17 23:17 15 mg ONETIME ONE Administration Ondansetron HCl 4 mg 11/25/17 21:35 11/25/17 21:45 Zofran IVPUSH 11/25/17 21:36 4 mg ONETIME ONE Administration Sodium Chloride 10 ml 11/25/17 21:36 11/25/17 21:45 Saline Flush FLUSH 10 ml ASDIRECTED PRN Administration Keep Vein Open - Radiology Interpretation Free Text/Narrative:: Right upper quadrant limited abdominal ultrasound impression per Vrad: no acute findings. No sonographic findings of acute cholecystitis. - Re-Assessments/Exams Free Text/Narrative Re-Assessment/Exam: 11/25/17 23:45 I reviewed the labs and imaging with the patient. She does describe biliary colic. With her labs being normal tonight her ultrasound been unremarkable will have her follow up in the clinic. She may require HIDA scan for further evaluation. Discharge instructions as documented. Departure - Departure Time of Disposition: 23:45 Disposition: Home, Self-Care 01 Condition: Fair Clinical Impression: Biliary colic - Discharge Information *PRESCRIPTION DRUG MONITORING PROGRAM REVIEWED*: Yes *COPY OF PRESCRIPTION DRUG MONITORING REPORT IN PATIENT CARISSA: No Prescriptions: Ondansetron [Zofran ODT] 4 mg PO Q8HR PRN #12 tab.dis PRN Reason: Nausea Acetaminophen/HYDROcodone [Newberg 325-5 MG] 1 tab PO Q6H PRN #10 tablet PRN Reason: Pain Instructions: Biliary Colic, Adult Referrals: Connie Beltrán PA-C [Primary Care Provider] - Forms: ED Department Discharge Additional Instructions: you were given medication in the ER that can affect your ability to drive and operate machinery. Do not drive or operate machinery within 10 hours of taking prescription narcotic pain medication. Follow-up with you primary care provider this week for further evaluation. You may require HIDA scan for further evaluation of your gallbladder. Zofran 1 tab sublingual every 8 hours as needed for nausea. [id number] Tylenol or Motrin as needed for pain. Do not take more than 4gram of tylenol from alls sources in one day. For pain not ready by Tylenol or Motrin you may take Newberg one tablet every 6 hours. Newberg as habit-forming, take as little as needed to control your pain. Do not drive or operate machinery within 10 hours of taking Newberg. Avoid fatty food. Please return to the ER if you symptoms change or worsen.
[2017-11-25] MEDS ORDERED: Ketorolac 15 MG/ML SDV IVPUSH ONE (23:16)
[2017-11-26 00:15] VITALS: BP 116/71
--- NOTE | 2017-11-26 07:29 | US ---
Limited abdominal ultrasound: Multiple real-time images were obtained of the upper right abdomen. Liver shows no focal parenchymal abnormality. Gallbladder shows no gallbladder wall thickening or shadowing gallstones. No biliary duct dilatation is seen. Right kidney shows no hydronephrosis or mass and has a length of 9.1 cm. Pancreas is felt to be within normal limits. Inferior vena cava is patent. Portal vein shows normal hepatopedal flow. Impression: 1. No abnormality is identified on right upper quadrant abdominal ultrasound. Diagnostic code #1 I agree with preliminary report from ad, finalized at 11/26/17, 12:36 AM Central Time
== END 2017-11-26 00:11 | disposition home or self-care (01) ==
LOC: JD.ED 20:42
DX: K80.50 Calculus of bile duct without cholangitis or cholecystitis without obstruction (principal); F17.210 Nicotine dependence, cigarettes, uncomplicated; Z88.1 Allergy status to other antibiotic agents; Z88.0 Allergy status to penicillin; Z79.899 Other long term (current) drug therapy
CPT/HCPCS: 36415; 76705; 80053; 82977; 83690; 85007; 85027; 86140; 96374; 96375; 99284; J1170; J1885; J2405; J7050

== ENCOUNTER 2018-06-27 16:04 | Emergency (ER) | payer MEDICAID ==
[2018-06-27 16:12] VITALS: BP 113/81
--- NOTE | 2018-06-27 16:19 | EDM.PDOC ---
ED HPI GENERAL MEDICAL PROBLEM - General Chief Complaint: Headache Stated Complaint: SEVERE HEADACHE/LEFT EYE ISSUES Time Seen by Provider: 06/27/18 16:10 Source of Information: Reports: Patient, RN Notes Reviewed History Limitations: Reports: No Limitations - History of Present Illness INITIAL COMMENTS - FREE TEXT/NARRATIVE: Patient is a 33-year-old female who presents to the ED today for the evaluation of a headache. She states that she has a history of migraines and headaches, she states that she usually can take some Tylenol and Motrin and rest and these go away. This headache has been present for around one week now she states that this is the longest she's ever had one of these headaches. She can normally take up to one week before these headaches go away. She notes some blurriness in her left eye and the headache is mainly on the left side of her head. She did not fall or hit her head. She would rate her pain at a 9 out of 10. Her primary care provider is Sofia Beltrán. She states that when she was younger she used to take Maxalt for her headaches in this helped her headaches. She last took Motrin, 400 mg, around 9 AM today. She further states she is light sensitive, sound sensitive, and has some slight nausea and has vomited as well. 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: Other (see below) Other 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: motrin Left Headache Pain Score (Numeric/FACES): 9 - Related Data Allergies Allergy/AdvReac Type Severity Reaction Status Date / Time aspirin Allergy Tachycardia Verified 06/27/18 16:13 Penicillins Allergy Cannot Verified 06/27/18 16:13 Remember cephalexin [From Keflex] AdvReac Vomiting Verified 06/27/18 16:13 Home Meds: Home Meds hydrOXYzine HCl [hydrOXYzine] 1 - 3 tab PO BEDTIME PRN 02/11/18 [History] SUMAtriptan [Imitrex] 25 mg PO ASDIRECTED PRN #20 tab 06/27/18 [Rx] Past Medical History HEENT History: Reports: Allergic Rhinitis, Other (See Below) Other HEENT History: vision changes, wears glasses Cardiovascular History: Reports: None Respiratory History: Reports: Asthma Gastrointestinal History: Reports: Other (See Below) Other Gastrointestinal History: abdominal pain, rectal pain Genitourinary History: Reports: None 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: 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: Other (See Below) Other WHALE 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: menorrhagia, pelvic pain, breast pain, nipple discharge Musculoskeletal History: Reports: Other (See Below) Other Musculoskeletal History: left knee pain, left shoulder pain, leg pain, medial meniscus tear, right wrist pain Neurological History: Reports: Migraines, Other (See Below) Other Neuro History: paresteisa, lumbar sprain Psychiatric History: Reports: Anxiety, Depression, Other (See Below) Other Psychiatric History: insomnia Endocrine/Metabolic History: Reports: None Hematologic History: Reports: Other (See Below) Other Hematologic History: elevated WBC Immunologic History: Reports: None Oncologic (Cancer) History: Reports: None Dermatologic History: Reports: Other (See Below) Other Dermatologic History: skin tag - Past Surgical History Head Surgeries/Procedures: Reports: None HEENT Surgical History: Reports: Adenoidectomy, Tonsillectomy Cardiovascular Surgical History: Reports: None Respiratory Surgical History: Reports: None GI Surgical History: Reports: Colonoscopy Female Surgical History: Reports: Tubal Ligation Male Surgical History: Reports: None Endocrine Surgical History: Reports: None Oncologic Surgical History: Reports: None Social & Family History - Caffeine Use Caffeine Use: Reports: Soda ED ROS GENERAL - Review of Systems Review Of Systems: See Below Constitutional: Denies: Fever, Chills HEENT: Reports: No Symptoms, Vision Change (blurred vision in Left eye, light sensitivity) Cardiovascular: Reports: No Symptoms Endocrine: Reports: No Symptoms GI/Abdominal: Reports: Nausea, Vomiting. Denies: Abdominal Pain, Constipation, Diarrhea : Reports: No Symptoms Musculoskeletal: Reports: No Symptoms Skin: Reports: No Symptoms Neurological: Reports: Headache. Denies: Dizziness, Trouble Speaking, Weakness , Change in Speech Psychiatric: Reports: No Symptoms Hematologic/Lymphatic: Reports: No Symptoms Immunologic: Reports: No Symptoms - Physical Exam Exam: See Below Exam Limited By: No Limitations General Appearance: Alert, WD/WN, No Apparent Distress Eye Exam: Bilateral Eye: EOMI, Normal Inspection, PERRL Ears: Normal External Exam Nose: Normal Inspection Throat/Mouth: Normal Inspection, Normal Lips, Normal Teeth, Normal Gums, Normal Oropharynx, Normal Voice, No Airway Compromise Head Exam: Atraumatic, Normocephalic Neck: Normal Inspection, Supple, Non-Tender, Full Range of Motion Respiratory/Chest: No Respiratory Distress, Lungs Clear, Normal Breath Sounds, No Accessory Muscle Use, Chest Non-Tender Cardiovascular: Normal Peripheral Pulses, Regular Rate, Rhythm, No Murmur GI/Abdominal: Normal Bowel Sounds, Soft, Non-Tender, No Distention Neuro Exam (Abbreviated): Alert, Oriented, Normal Cognition, Normal Gait, Normal Reflexes, No Motor/Sensory Deficits Back Exam: Normal Inspection, Full Range of Motion Extremities: Normal Inspection, Normal Range of Motion, Normal Capillary Refill Psychiatric: Normal Affect, Normal Mood Skin Exam: Warm, Dry, Intact, Normal Color Course - Vital Signs Last Recorded V/S: Last Vital Signs Temp 98.2 F 06/27/18 16:10 Pulse 89 06/27/18 16:10 Resp 20 06/27/18 16:10 BP 113/81 06/27/18 16:10 Pulse Ox 97 06/27/18 16:10 - Orders/Labs/Meds Orders: Active Orders 24 hr Category Date Time Status Peripheral IV Care [RC] . DIRECTED Care 06/27/18 16:24 Ordered Sodium Chloride 0.9% @ 125 MLS/HR (1000ml Bag) Med 06/27/18 16:30 Ordered Sodium Chloride 0.9% [Normal Saline] 1,000 ml IV ASDIRECTED Sodium Chloride 0.9% [Saline Flush] Med 06/27/18 16:24 Ordered 10 ml FLUSH ASDIRECTED PRN Peripheral IV Insertion Adult [OM.PC] Routine Oth 06/27/18 16:24 Ordered Medication Orders Sodium Chloride (Normal Saline) 1,000 mls @ 125 mls/hr IV ASDIRECTED GRANT Last Admin: 06/27/18 16:43 Dose: 125 mls/hr Sodium Chloride (Saline Flush) 10 ml FLUSH ASDIRECTED PRN PRN Reason: Keep Vein Open Last Admin: 06/27/18 16:47 Dose: 10 ml Meds: Medications Generic Name Dose Route Start Last Admin Trade Name Freq PRN Reason Stop Dose Admin Sodium Chloride 1,000 mls @ 125 mls/hr 06/27/18 16:30 06/27/18 16:43 Normal Saline IV 125 mls/hr ASDIRECTED GRANT Administration Sodium Chloride 10 ml 06/27/18 16:24 06/27/18 16:47 Saline Flush FLUSH 10 ml ASDIRECTED PRN Administration Keep Vein Open Discontinued Medications Generic Name Dose Route Start Last Admin Trade Name Freq PRN Reason Stop Dose Admin Diphenhydramine HCl 25 mg 06/27/18 16:24 06/27/18 16:45 Benadryl IVPUSH 06/27/18 16:25 25 mg ONETIME ONE Administration Ketorolac Tromethamine 30 mg 06/27/18 16:24 06/27/18 16:47 Toradol IVPUSH 06/27/18 16:25 30 mg ONETIME ONE Administration Metoclopramide HCl 10 mg 06/27/18 16:24 06/27/18 16:44 Reglan IVPUSH 06/27/18 16:25 10 mg ONETIME ONE Administration Sumatriptan Succinate 6 mg 06/27/18 18:28 06/27/18 18:33 Imitrex SUBCUT 06/27/18 18:29 6 mg ONETIME ONE Administration - Re-Assessments/Exams Free Text/Narrative Re-Assessment/Exam: 06/27/18 16:40 Patient presents to the ED for the evaluation of a headache. I have ordered IV fluids, 30 mg IV Toradol, 10 mg IV Reglan, 25 mg IV Benadryl for management of this headache. If this seems to help I might provide the patient with some tablets of Fioricet for future headaches. 06/27/18 18:28 Patient states that her headache is not much better at this time. I did order 6 mg subcutaneous sumatriptan for further relief of her headache. 06/27/18 19:07 Patient states that the sumatriptan did work well for her headache and it is relieved by 50%. I will discharge the patient home with a prescription for this so that she can talk with Sofia Beltrán about continuation of this. Departure - Departure Time of Disposition: 19:14 Disposition: Home, Self-Care 01 Condition: Fair Clinical Impression: Migraine - Discharge Information *PRESCRIPTION DRUG MONITORING PROGRAM REVIEWED*: No *COPY OF PRESCRIPTION DRUG MONITORING REPORT IN PATIENT CARISSA: No Prescriptions: SUMAtriptan [Imitrex] 25 mg PO ASDIRECTED PRN #20 tab PRN Reason: migraine Instructions: Migraine Headache, [id number] Referrals: Connie Beltrán PA-C [Primary Care Provider] - Forms: ED Department Discharge Additional Instructions: You have been evaluated in the ED tonight for your migraine. You were given sumatriptan subcutaneously for headache relief, this worked well for you. I have provided with a prescription for sumatriptan as needed. Please take one tablet by mouth at onset of migraine. You may repeat this in 2 hours if the headache is not subsided. Do not take more than 200 mg in a 24- hour time span. Please follow up with Sofia Beltrán for further management of your migraines and an extended prescription for the sumatriptan. Please return to the ED if her symptoms change or worsen. - My Orders Last 24 Hours: My Active Orders 06/27/18 16:24 Peripheral IV Care [RC] . DIRECTED Sodium Chloride 0.9% [Saline Flush] 10 ml FLUSH ASDIRECTED PRN Peripheral IV Insertion Adult [OM.PC] Routine 06/27/18 16:30 Sodium Chloride 0.9% @ 125 MLS/HR (1000ml Bag) Sodium Chloride 0.9% [Normal Saline] 1,000 ml IV ASDIRECTED - Assessment/Plan Last 24 Hours: My Active Orders 06/27/18 16:24 Peripheral IV Care [RC] . DIRECTED Sodium Chloride 0.9% [Saline Flush] 10 ml FLUSH ASDIRECTED PRN Peripheral IV Insertion Adult [OM.PC] Routine 06/27/18 16:30 Sodium Chloride 0.9% @ 125 MLS/HR (1000ml Bag) Sodium Chloride 0.9% [Normal Saline] 1,000 ml IV ASDIRECTED
[2018-06-27] MEDS ORDERED: Metoclopramide 10 MG/2 ML SDV IVPUSH ONE (16:24)
[2018-06-27] MEDS ORDERED: diphenhydrAMINE 50 MG/ML SDV IVPUSH ONE (16:24)
[2018-06-27] MEDS ORDERED: Sodium Chloride 0.9% 10 ML Syringe FLUSH PRN (16:24)
[2018-06-27] MEDS ORDERED: Ketorolac 30 MG/ML SDV IVPUSH ONE (16:24)
[2018-06-27] MEDS ORDERED: Sodium Chloride 0.9% 1,000 ML IV SCH (16:30)
[2018-06-27] MEDS ORDERED: SUMAtriptan 6 MG/0.5 ML SDV SUBCUT ONE (18:28)
== END 2018-06-27 19:41 | disposition home or self-care (01) ==
LOC: JD.ED 16:04
DX: G43.909 Migraine, unspecified, not intractable, without status migrainosus (principal); J45.909 Unspecified asthma, uncomplicated; F41.9 Anxiety disorder, unspecified; F32.9 Major depressive disorder, single episode, unspecified; Z88.6 Allergy status to analgesic agent; Z88.0 Allergy status to penicillin; Z88.1 Allergy status to other antibiotic agents
CPT/HCPCS: 96361; 96372; 96374; 96375; 99283; J1200; J1885; J2765; J3030; J7040; 99284

== ENCOUNTER 2018-12-10 12:10 | Emergency (ER) | payer MEDICAID ==
[2018-12-10 12:19] VITALS: BP 115/84; PULSE 73
[2018-12-10] MEDS ORDERED: Ketorolac 30 MG/ML SDV IM ONE (12:55)
[2018-12-10] MEDS ORDERED: Ondansetron 4 MG Tab.DIS PO ONE (12:55)
[2018-12-10] MEDS ORDERED: Meclizine 12.5 MG Tab PO ONE (12:55)
--- NOTE | 2018-12-10 13:27 | EDM.PDOC ---
ED HPI GENERAL MEDICAL PROBLEM - General Chief Complaint: ENT Problem Stated Complaint: MIGRAINE AND EAR PAIN Time Seen by Provider: 12/10/18 12:45 Source of Information: Reports: Patient History Limitations: Reports: No Limitations - History of Present Illness INITIAL COMMENTS - FREE TEXT/NARRATIVE: 33-year-old female presents for evaluation and treatment of a migraine, left ear pain and dizziness. Patient reports Sunday she developed left ear pain. She has also developed a migraine find her left eye, left side of her forehead and left temporal area. She has a history of migraines and other than the length of time she states that this feels similar. She states today she been quite dizzy and lightheaded and nearly lost her balance. She did not pass out. She reports chills and nausea. No fevers, vomiting or any sore throat. She'll that her symptoms are getting worse rather than improving. She has been taking [id number] Motrin for the headache over the weekend. Left Ear Pain Score (Numeric/FACES): 8 - Related Data Allergies Allergy/AdvReac Type Severity Reaction Status Date / Time aspirin Allergy Tachycardia Verified 12/10/18 12:19 Penicillins Allergy Cannot Verified 12/10/18 12:19 Remember cephalexin [From Keflex] AdvReac Vomiting Verified 12/10/18 12:19 Home Meds: Home Meds Meclizine [Antivert] 25 mg PO TID PRN #20 tab 12/10/18 [Rx] Ondansetron [Zofran ODT] 4 mg PO Q6H PRN #20 tab.dis 12/10/18 [Rx] Past Medical History HEENT History: Reports: Allergic Rhinitis, Impaired Vision Other HEENT History: wears glasses Cardiovascular History: Reports: None Respiratory History: Reports: Asthma Gastrointestinal History: Reports: Other (See Below) Other Gastrointestinal History: abdominal pain, rectal pain Genitourinary History: Reports: None 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: 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: Other (See Below) Other 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: "went in and looked at my ovaries." Musculoskeletal History: Reports: Other (See Below) Other Musculoskeletal History: left knee pain, left shoulder pain, leg pain, medial meniscus tear, right wrist pain Neurological History: Reports: Migraines Other Neuro History: paresteisa, lumbar sprain Psychiatric History: Reports: Anxiety, Depression Other Psychiatric History: insomnia Endocrine/Metabolic History: Reports: None Hematologic History: Reports: None Other Hematologic History: elevated WBC Immunologic History: Reports: None Oncologic (Cancer) History: Reports: None Dermatologic History: Reports: Other (See Below) Other Dermatologic History: skin tag - Infectious Disease History Infectious Disease History: Reports: Chicken Pox - Past Surgical History Head Surgeries/Procedures: Reports: None HEENT Surgical History: Reports: Adenoidectomy, Oral Surgery, Tonsillectomy Cardiovascular Surgical History: Reports: None GI Surgical History: Reports: Colonoscopy Female Surgical History: Reports: Tubal Ligation, Other (See Below) Endocrine Surgical History: Reports: None Oncologic Surgical History: Reports: None Social & Family History - Family History Family Medical History: Noncontributory - Tobacco Use Smoking Status *Q: Current Every Day Smoker Years of Tobacco use: 15 Packs/Tins Daily: 0.5 - Caffeine Use Caffeine Use: Reports: Soda - Recreational Drug Use Recreational Drug Use: No - Living Situation & Occupation Living situation: Reports: , with Spouse, with Family (3 kids) Occupation: Employed ([employer]) ED ROS ENT - Review of Systems Review Of Systems: See Below Constitutional: Reports: Chills. Denies: Fever HEENT: Reports: Ear Pain (Left). Denies: Throat Pain GI/Abdominal: Reports: Nausea. Denies: Vomiting Neurological: Reports: Dizziness, Headache. Denies: Syncope ED EXAM, ENT - Physical Exam Exam: See Below Exam Limited By: No Limitations General Appearance: Alert, WD/WN, No Apparent Distress Eye Exam: Bilateral Eye: Normal Inspection Ears: Normal External Exam, Normal Canal, Hearing Grossly Normal, Normal TMs Nose: Normal Inspection Mouth/Throat: Normal Inspection, Normal Gums, Normal Lips, Normal Oropharynx, Normal Teeth Head: Atraumatic, Normocephalic Neck: Normal Inspection, Full Range of Motion Respiratory/Chest: No Respiratory Distress, Lungs Clear, Normal Breath Sounds Cardiovascular: Normal Peripheral Pulses, Regular Rate, Rhythm, No Murmur Neurological: Alert, Oriented, CN II-XII Intact, Normal Cognition, Normal Gait Psychiatric: Normal Affect, Normal Mood Skin: Warm, Dry, Normal Color Course - Vital Signs Last Recorded V/S: Last Vital Signs Temp 97.8 F 12/10/18 12:17 Pulse 73 12/10/18 12:17 Resp 16 12/10/18 12:17 BP 115/84 09/10/19 12:17 Pulse Ox 98 12/10/18 12:17 - Orders/Labs/Meds Meds: Medications Discontinued Medications Generic Name Dose Route Start Last Admin Trade Name Freq PRN Reason Stop Dose Admin Diphenhydramine HCl 50 mg 12/10/18 14:02 12/10/18 14:12 Benadryl IM 12/10/18 14:03 50 mg ONETIME ONE Administration Haloperidol Lactate 5 mg 12/10/18 14:02 12/10/18 14:13 Haldol IM 12/10/18 14:03 5 mg ONETIME ONE Administration Ketorolac Tromethamine 30 mg 12/10/18 12:55 12/10/18 13:16 Toradol IM 12/10/18 12:56 30 mg ONETIME ONE Administration Meclizine HCl 25 mg 12/10/18 12:55 12/10/18 13:16 Antivert PO 12/10/18 12:56 25 mg ONETIME ONE Administration Ondansetron HCl 4 mg 12/10/18 12:55 12/10/18 13:16 Zofran Odt PO 12/10/18 12:56 4 mg ONETIME ONE Administration - Re-Assessments/Exams Free Text/Narrative Re-Assessment/Exam: 12/10/18 14:00 Checked on the patient. She reports dizziness and nausea have greatly improved. She reports no relief from migraine symptoms. We will continue to work her migraine protocol. Will give her some Haldol and Benadryl. She is in no obvious distress. Resting comfortably, Lights are on in the room and she is watching TV. 12/10/18 14:46 Checked on the patient. She is feeling greatly improved. We'll discharge her home with some meclizine, Zofran and instructions to use [id number] Flonase or Nasonex. Follow-up in the clinic. Discharge instructions as documented. Departure - Departure Time of Disposition: 14:46 Disposition: Home, Self-Care 01 Condition: Good Clinical Impression: Otitis media with effusion, Migraine - Discharge Information *PRESCRIPTION DRUG MONITORING PROGRAM REVIEWED*: No *COPY OF PRESCRIPTION DRUG MONITORING REPORT IN PATIENT CARISSA: No Prescriptions: Meclizine [Antivert] 25 mg PO TID PRN #20 tab PRN Reason: Dizziness Ondansetron [Zofran ODT] 4 mg PO Q6H PRN #20 tab.dis PRN Reason: Nausea Instructions: Otitis Media, Adult, [id number], Migraine Headache Referrals: Connie Beltrán PA-C [Primary Care Provider] - Forms: ED Department Discharge Additional Instructions: [id number] Flonase or Nasonex to help with the otitis effusion. Meclizine 1 tab 3 times a day as needed for dizziness. Zofran 1 tab sublingual every 6 hours as needed for nausea. Follow-up in the clinic next week for recheck of ears. go home and rest in a dark quiet room. Make sure you are drinking plenty of fluids. Please return to the ER if your symptoms change or worsen.
[2018-12-10] MEDS ORDERED: Haloperidol Lactate 5 MG/ML SDV IM ONE (14:02)
[2018-12-10] MEDS ORDERED: diphenhydrAMINE 50 MG/ML SDV IM ONE (14:02)
== END 2018-12-10 14:59 | disposition home or self-care (01) ==
LOC: JD.ED 12:10
DX: G43.909 Migraine, unspecified, not intractable, without status migrainosus (principal); H65.92 Unspecified nonsuppurative otitis media, left ear; F17.210 Nicotine dependence, cigarettes, uncomplicated; Z88.6 Allergy status to analgesic agent; Z88.0 Allergy status to penicillin; Z88.1 Allergy status to other antibiotic agents
CPT/HCPCS: 96372; 99283; A9270; J1200; J1630; J1885